=== PATIENT | female | born 1955 | race Caucasian/White ===

== ENCOUNTER 2022-07-10 23:58 | Emergency (ER) | payer MEDICARE ==
[~2022-07-10] VITALS: Ht 162.6 cm; Wt 72.6 kg
[2022-07-11] MEDS ORDERED: KETOROLAC TROMETHAMINE 60 MG/2 ML VIAL IM ONE (00:15)
[2022-07-11] MEDS ORDERED: METHOCARBAMOL 750 MG TAB PO ONE (00:15)
[2022-07-11] MEDS ORDERED: KETOROLAC TROMETHAMINE 60 MG/2 ML VIAL ONE (00:23)
[2022-07-11] MEDS ORDERED: METHOCARBAMOL 750 MG TAB ONE (00:24)
[2022-07-11] MEDS ORDERED: NAPROSYN500 MG PO (01:40)
[2022-07-11] MEDS ORDERED: METHOCARBAMOL500 MG PO (01:40)
== END 2022-07-11 01:52 | disposition home or self-care (01) ==
LOC: ER 07-11 00:04
DX: M54.42 Lumbago with sciatica, left side (principal); M41.9 Scoliosis, unspecified; I10 Essential (primary) hypertension; E78.5 Hyperlipidemia, unspecified
CPT/HCPCS: 72128; 72131; 99283; J1885